=== PATIENT | male | born 1995 | race African-American/Black ===

== ENCOUNTER 2018-08-18 12:32 | Emergency (ER) | payer SELFPAY ==
[~2018-08-18] VITALS: Ht 172.7 cm; Wt 56.0 kg
[2018-08-18] MEDS ORDERED: DIPHENHYDRAMINE 50MG CAPSULE PO ONE (14:45)
[2018-08-18 14:51] LABS: BASOPHILS % 0.3 % (0.0-2.0); EOSINOPHILS % 0.1 % (0.0-5.0); HEMATOCRIT. 48.5 % (42.0-52.0); HEMOGLOBIN. 16.7 g/dL (14.0-18.0); LYMPHOCYTES % 17.9 % (20.0-50.0); MEAN CORPUSCULAR HEMOGLOBIN 30.4 pg (28.0-32.0); MEAN PLATELET VOLUME 11.8 fl (7.4-10.4); MONOCYTES % 8.6 % (2.0-8.0); NEUTROPHILS % 73.1 % (40.0-76.0); PLATELET 214 x1000/uL (130-400); RED BLOOD CELL COUNT 5.51 mill/uL (4.7-6.1); RED CELL DISTRIBUTION WIDTH 12.7 % (11.6-14.6)
[2018-08-18 14:57] LABS: CHLORIDE 103 mEq/L (98-107)
[2018-08-18] MEDS ORDERED: DIPHENHYDRAMINE 50MG/ML VIAL IM ONE (15:00)
[2018-08-18 15:30] VITALS: BP 157/91
== END 2018-08-18 15:32 | disposition home or self-care (01) ==
LOC: ER 12:32
DX: G25.0 Essential tremor (principal)
CPT/HCPCS: 36415; 80053; 85025; 96372; 99284; J1200; Q0163